=== PATIENT | female | born 1990 | race Caucasian/White ===

== ENCOUNTER 2023-12-28 11:49 | Inpatient (IN) | payer MEDICAID ==
[2023-12-28] MEDS ORDERED: Calcium Carbonate 500 MG Tab.Chew PO PRN (12:03)
[2023-12-28] MEDS ORDERED: Nalbuphine 10 MG/ML Syringe IVPUSH PRN (12:03)
[2023-12-28] MEDS ORDERED: Ondansetron 4 MG/2 ML SDV IVPUSH PRN ×2 (12:03→15:34)
[2023-12-28] MEDS ORDERED: Lidocaine 1% 50 ML MDV INJECT PRN (12:03)
[2023-12-28] MEDS ORDERED: Acetaminophen 325 MG Tab PO PRN (12:03)
[2023-12-28] MEDS ORDERED: Oxytocin/Lactated Ringers 30 UNIT/500 ML BAG IV SCH ×2 (12:15)
[2023-12-28 12:31] LABS: BASOPHILS PERCENT AUTO 0.1 % (0.0-1.0); EOSINOPHILS ABSOLUTE AUTO 0.1 K/mm3 (0.0-0.4); EOSINOPHILS PERCENT AUTO 0.6 % (0.0-6.0); HEMATOCRIT 33.5 % (37.0-47.0); HEMOGLOBIN 11.4 gm/dl (12.0-16.0); IMMATURE GRAN ABSOLUTE AUTO 0.06 K/mm3 (0.00-0.05); IMMATURE GRAN PERCENT AUTO 0.6 % (0.0-0.4); LYMPHOCYTES ABSOLUTE AUTO 2.1 K/mm3 (1.0-4.8); MEAN CORPUSCULAR HEMOGLOBIN 33.7 pg (28.0-32.0); MEAN CORPUSCULAR VOLUME 99.1 fl (83.0-99.0); MEAN PLATELET VOLUME 11.9 fl (9.4-12.3); MONOCYTES ABSOLUTE AUTO 0.6 K/mm3 (0.0-0.8); MONOCYTES PERCENT AUTO 6.2 % (0.0-8.0); NEUTROPHILS ABSOLUTE AUTO 7.2 K/mm3 (1.8-7.7); NEUTROPHILS PERCENT AUTO 71.5 % (41.0-71.0); PLATELET COUNT,PLT 172 K/mm3 (150-400); RED BLOOD CELL COUNT 3.38 M/mm3 (4.10-5.30); WHITE BLOOD CELL COUNT,WBC 10.04 K/mm3 (3.9-11.3)
[2023-12-28] MEDS: Lactated Ringers 1,000 ML IV SCH (12:57)
[2023-12-28] MEDS: Penicillin G Potassium 5 MILLUNITS in Sodium Chloride 0.9% 100 ML IV ONE (12:59)
[2023-12-28] MEDS ORDERED: fentaNYL 100 MCG/2 ML SDV EPIDUR PRN (13:03)
[2023-12-28] MEDS ORDERED: Bupivacaine/fentaNYL/NS 100 ML Bag EPIDUR PRN (13:03)
[2023-12-28] MEDS ORDERED: diphenhydrAMINE 50 MG/ML SDV IVPUSH PRN ×3 (13:03→17:28)
[2023-12-28] MEDS ORDERED: ePHEDrine 50 MG/ML SDV IVPUSH PRN ×2 (13:03→17:28)
[2023-12-28] MEDS ORDERED: Lactated Ringers 2,000 ML ONE (14:51)
[2023-12-28] MEDS ORDERED: Ketorolac 30 MG/ML SDV ONE (14:51)
[2023-12-28] MEDS ORDERED: Oxytocin 10 Units/1 ML SDV ONE (14:51)
[2023-12-28] MEDS ORDERED: Ondansetron 4 MG/2 ML SDV ONE (14:51)
[2023-12-28] MEDS ORDERED: Morphine PF 10 MG/10 ML SDV ONE (14:51)
[2023-12-28] MEDS ORDERED: ceFAZolin 2 GM Vial ONE (14:52)
[2023-12-28] MEDS: Citric Acid/Sodium Citrate Solution 30 ML Cup PO ONE (14:59)
[2023-12-28] MEDS: Metoclopramide 10 MG/2 ML SDV IVPUSH ONE (14:59)
[2023-12-28] MEDS: Azithromycin 500 MG in Sodium Chloride 0.9% 250 ML IV ONE (15:02)
[2023-12-28] MEDS ORDERED: fentaNYL 100 MCG/2 ML SDV IVPUSH PRN (15:34)
[2023-12-28] MEDS ORDERED: Meperidine 50 MG/ML Vial IVPUSH PRN (15:34)
[2023-12-28] MEDS ORDERED: Penicillin G Potassium 2.5 MILLUNITS in Sodium Chloride 0.9% 100 ML IV SCH (16:30)
[2023-12-28] MEDS ORDERED: Sodium Chloride 0.9% 10 ML Syringe FLUSH PRN (17:28)
[2023-12-28] MEDS ORDERED: Naloxone 0.4 MG/ML SDV IVPUSH PRN (17:28)
[2023-12-28] MEDS: Dextrose 5%-Lactated Ringers 1,000 ML IV SCH (17:46)
[2023-12-28] MEDS: Acetaminophen/oxyCODONE 325-5 MG Tab PO PRN (19:03)
[2023-12-28] MEDS: Ketorolac 30 MG/ML SDV IVPUSH SCH (21:54)
[2023-12-29] MEDS ORDERED: Ketorolac 30 MG/ML SDV IVPUSH SCH
[2023-12-29 06:53] LABS: BASOPHILS PERCENT AUTO 0.2 % (0.0-1.0); EOSINOPHILS ABSOLUTE AUTO 0.1 K/mm3 (0.0-0.4); EOSINOPHILS PERCENT AUTO 0.9 % (0.0-6.0); HEMATOCRIT 26.4 % (37.0-47.0); IMMATURE GRAN ABSOLUTE AUTO 0.06 K/mm3 (0.00-0.05); IMMATURE GRAN PERCENT AUTO 0.5 % (0.0-0.4); LYMPHOCYTES ABSOLUTE AUTO 1.8 K/mm3 (1.0-4.8); LYMPHOCYTES PERCENT AUTO 14.8 % (24.0-44.0); MEAN CORPUSCULAR HEMOGLOBIN 33.7 pg (28.0-32.0); MEAN CORPUSCULAR HGB CONC 34.5 g/dl (32.0-36.0); MEAN CORPUSCULAR VOLUME 97.8 fl (83.0-99.0); MEAN PLATELET VOLUME 11.9 fl (9.4-12.3); MONOCYTES ABSOLUTE AUTO 0.7 K/mm3 (0.0-0.8); NEUTROPHILS ABSOLUTE AUTO 9.3 K/mm3 (1.8-7.7); NEUTROPHILS PERCENT AUTO 77.6 % (41.0-71.0); PLATELET COUNT,PLT 145 K/mm3 (150-400); WHITE BLOOD CELL COUNT,WBC 11.92 K/mm3 (3.9-11.3)
[2023-12-29 07:01] LABS: HEMOGLOBIN 9.1 gm/dl (12.0-16.0)
[2023-12-29] MEDS: Simethicone 80 MG Tab.Chew PO PRN (11:57)
[2023-12-29] MEDS: ceFAZolin 2 GM in Sodium Chloride 0.9% 50 ML IV ONE (13:31)
[2023-12-29] MEDS: Ondansetron 4 MG/2 ML SDV IV PRN (16:50)
[2023-12-29] MEDS: Ibuprofen 600 MG Tab PO PRN (17:49)
[2023-12-29] MEDS: Acetaminophen/oxyCODONE 325-5 MG Tab PO PRN (23:55)
[2023-12-30] MEDS ORDERED: Ondansetron 4 MG Tab.DIS PO PRN (17:00)
[2023-12-31] MEDS: Docusate Sodium 100 MG Cap PO PRN (00:10)
== END 2023-12-31 18:43 | disposition home or self-care (01) | DRG 787 ==
LOC: JD.OBCHECK 11:49 → JD.OB 12:03 → OBSVTOIN 15:32 → JD.OB 15:33
PROVIDERS: ADMIT Family Medicine; ATTEND Family Medicine
PROC: 10H07YZ Insertion of Other Device into Products of Conception, Via Natural or Artificial Opening (ICD-10-PCS; 2023-12-28)
PROC: 10907ZC Drainage of Amniotic Fluid, Therapeutic from Products of Conception, Via Natural or Artificial Opening (ICD-10-PCS; 2023-12-28)
PROC: 10D00Z1 Extraction of Products of Conception, Low, Open Approach (ICD-10-PCS; principal; 2023-12-28 14:51)
DX: O36.5930 Maternal care for other known or suspected poor fetal growth, third trimester, not applicable or unspecified (principal); O41.03X0 Oligohydramnios, third trimester, not applicable or unspecified; Z37.0 Single live birth; O99.824 Streptococcus B carrier state complicating childbirth; O76 Abnormality in fetal heart rate and rhythm complicating labor and delivery; Z3A.40 40 weeks gestation of pregnancy; O99.02 Anemia complicating childbirth; D64.9 Anemia, unspecified; Z91.040 Latex allergy status; Z87.891 Personal history of nicotine dependence; O26.893 Other specified pregnancy related conditions, third trimester; Z67.11 Type A blood, Rh negative; O99.62 Diseases of the digestive system complicating childbirth; K21.9 Gastro-esophageal reflux disease without esophagitis; O99.344 Other mental disorders complicating childbirth; F41.8 Other specified anxiety disorders; O48.0 Post-term pregnancy
CPT/HCPCS: 01961; 36415; 36430; 59025; 85025; 85461; 86592; 86850; 86870; 86900; 86901; 94762; 99140; A9270-GY; J0456; J0690; J1885; J2274; J2405; J2540; J2590; J2765; J2790; J3490; J7050; J7120; J7121